=== PATIENT | male | born 1975 | race Two or more races ===

== ENCOUNTER 2018-01-27 22:33 | Emergency (ER) | payer SELFPAY ==
[~2018-01-27] VITALS: Ht 177.8 cm; Wt 78.9 kg
[2018-01-27] MEDS ORDERED: RISPERIDONE (22:45)
[2018-01-27 22:49] VITALS: BP 118/85
[2018-01-27] MEDS ORDERED: Bacitracin Oint UD TOPIC ONE (23:00)
[2018-01-27] MEDS ORDERED: CEPHALEXIN500 MG ORAL (23:08)
[2018-01-27] MEDS ORDERED: IBUPROFEN600 MG ORAL (23:09)
[2018-01-27 23:15] VITALS: BP 123/87
--- NOTE | 2018-01-28 01:21 | Emergency Room Report ---
History of Present Illness General Chief Complaint: General Complaint Source: Patient Present Illness HPI The patient's 42-year-old male who presented after increased skin discomfort. The patient states that he had been bitten by a spider. He reports this happened earlier in the day. He denies any fever. He reported attempting to remove the material from his nail with a knife. He denies any fever. He denies any abdominal pain. Patient denies any other injuries. Allergies: Coded Allergies: No Known Allergies (Unverified , 01/27/18) Patient History Past Medical History: see triage record Reviewed Nursing Documentation: PMH: Agreed; PSxH: Agreed Nursing Documentation-PMH History Of Psychiatric Problem: Yes - Schizophrenia Review of Systems All Other Systems: negative except mentioned in HPI Physical Exam Vital Signs Date Time Temp Pulse Resp B/P (MAP) Pulse Ox O2 Delivery O2 Flow Rate FiO2 01/27/18 22:40 97.5 66 16 125/84 97 Room Air General Appearance: well appearing, no apparent distress, alert, GCS 15, non- toxic Head: normocephalic, atraumatic ENT: hearing grossly normal, normal voice Neck: full range of motion, supple Respiratory: no respiratory distress, speaking full sentences Musculoskeletal: no calf tenderness Neurologic: alert, oriented x3, responsive, 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 Differential diagnosis included was not limited to scabies, spider bite, cellulitis, paronychia infection among others. Patient has a benign exam and does not appear to require any further imaging or laboratory testing at this time. The patient does not appear to have any evidence of severe cellulitis. Patient was given prescription for oral Keflex due to mild paronychia infection. Patient was given prescription for oral antibiotics. He was advised follow-up for recheck and return if any worsening. Last Vital Signs Date Time Temp Pulse Resp B/P (MAP) Pulse Ox O2 Delivery O2 Flow Rate FiO2 01/27/18 23:30 97.6 01/27/18 22:40 66 16 125/84 97 Room Air Status: improved Disposition: HOME, SELF-CARE Condition: Stable Scripts Ibuprofen* (MOTRIN*) 600 Mg Tablet 600 MG ORAL THREE TIMES A DAY, #30 TAB 0 Refills Prov: Chet Keys MD 01/27/18 Cephalexin* (KEFLEX*) 500 Mg Capsule 500 MG ORAL EVERY 6 HOURS, #40 CAP Prov: Chet Keys MD 01/27/18 Referrals: NOT CHOSEN IPA/,REFERRING (PCP) Patient Instructions: Insect Bite Chet Keys MD Jan 28, 2018 01:21
== END 2018-01-27 23:15 | disposition home or self-care (01) ==
LOC: EMR 23:10
DX: S60.461A Insect bite (nonvenomous) of left index finger, initial encounter (principal); W57.XXXA Bitten or stung by nonvenomous insect and other nonvenomous arthropods, initial encounter; Y92.9 Unspecified place or not applicable; F20.9 Schizophrenia, unspecified; L03.012 Cellulitis of left finger; F17.200 Nicotine dependence, unspecified, uncomplicated
CPT/HCPCS: 99282